=== PATIENT | male | born 2000 | race Caucasian/White ===

== ENCOUNTER 2020-02-25 10:57 | Emergency (ER) | payer BC ==
[~2020-02-25] VITALS: Ht 185.4 cm; Wt 69.6 kg
--- NOTE | 2020-02-25 12:07 | NUR ---
[employer]: PT AMBULATORY WITH STEADY GAIT TO ROOM FROM LOBBY AT THIS TIME.
[2020-02-25] MEDS ORDERED: LORazepam 2 MG/ML, 1ML IVPush ONE (13:00)
[2020-02-25] MEDS ORDERED: SODIUM CHLORIDE FLUSH 10ML SYR IVF ONE (13:00)
--- NOTE | 2020-02-25 13:00 | NUR ---
PT HAS CO HERNIA IN GROIN THAT IS NOT REDUCABLE. PT NOT IN DISTRESS. TENDER TO TOUCH.
[2020-02-25 13:06] LABS: BASOPHILS # (AUTO) 0.02 x10^3/uL (0-0.1); BASOPHILS % (AUTO) 1 % (0-1); EOSINOPHILS # (AUTO) 0.06 x10^3/uL (0-0.4); EOSINOPHILS % (AUTO) 1 % (1-7); LYMPHOCYTES # (AUTO) 1.85 x10^3/uL (1-3.4); LYMPHOCYTES % (AUTO) 40 % (22-44); MD NO; MEAN CORPUSCULAR HEMOGLOBIN 32.1 pg (27.5-34.5); MEAN CORPUSCULAR HGB CONC 34.9 g/dL (33.2-36.2); MEAN PLATELET VOLUME 8.7 fL (7.4-10.4); MONOCYTES # (AUTO) 0.34 x10^3/uL (0.2-0.8); MONOCYTES % (AUTO) 7 % (2-9); NEUTROPHILS # (AUTO) 2.38 x10^3/uL (1.8-6.8); NEUTROPHILS % (AUTO) 51 % (42-75); PLATELET COUNT 241 x10^3/uL (130-400); RED BLOOD COUNT 4.89 x10^6/uL (4.38-5.82); RED CELL DISTRIBUTION WIDTH 12.9 % (9.4-14.8)
[2020-02-25 13:10] LABS: ALBUMIN 4.2 g/dL (3.4-5.0); ANION GAP 6 mmol/L (5-15); CHLORIDE 108 mmol/L (98-107); CREATININE 0.82 mg/dL (0.7-1.3)
--- NOTE | 2020-02-25 13:50 | NUR ---
PT AMBULATED TO BATHROOM W STEADY GATE FOR UA US COMPLETE
[2020-02-25 14:12] LABS: MICROSCOPIC NOT IND
--- NOTE | 2020-02-25 14:30 | NUR ---
PT RESTING. NO NEEDS A THIS TIME. POC TO DC
[2020-02-25 15:36] VITALS: BP 111/78
--- NOTE | 2020-02-25 15:36 | NUR ---
Patient/Caregiver given discharge instructions and they have confirmed that they understand the instructions. Patient ambulatory with steady gait.
== END 2020-02-25 15:38 | disposition home or self-care (01) ==
LOC: ED 13:05
DX: R19.03 Right lower quadrant abdominal swelling, mass and lump (principal)
CPT/HCPCS: 36415; 76857; 80048; 81003; 82040; 83605; 85025; 99284